=== PATIENT | female | born 1945 | race Native Hawaiian/Other Pacific Islander ===

== ENCOUNTER 2020-03-19 18:45 | Emergency (ER) | payer OTHER ==
[~2020-03-19] VITALS: Ht 165.1 cm; Wt 94.8 kg
[2020-03-19 18:45] VITALS: TEMP 98.3
[2020-03-19 19:21] LABS: PLATELET COUNT 176 K/uL (152-353)
[2020-03-19 19:33] LABS: POTASSIUM 4.5 mmol/L (3.6-5.2)
[2020-03-19 20:43] VITALS: BP 150/52
[2020-03-19] MEDS ORDERED: LEVO0.08 PO (23:24)
[2020-03-19] MEDS ORDERED: METF500T PO (23:26)
[2020-03-19] MEDS ORDERED: LIPITOR40 MG PO (23:27)
[2020-03-19] MEDS ORDERED: METO50TA27 PO (23:34)
[2020-03-19] MEDS ORDERED: [UNRECOGNIZED DRUG - OTHER] INH (23:38)
[2020-03-20] MEDS ORDERED: CLOP75TA2 PO (13:32)
[2020-03-20] MEDS ORDERED: ENALAPRIL MALE2.5 MG PO (13:33)
[2020-03-20] MEDS ORDERED: ACTOS15 MG PO (13:34)
[2020-03-20] MEDS ORDERED: NOVOLIN 70/30 F1 INJ SC ×2 (13:41→13:43)
[2020-03-23] MEDS ORDERED: CITA20TA2 PO (08:50)
[2020-03-23] MEDS ORDERED: INSU300I SC (08:50)
[2020-03-23] MEDS ORDERED: DONE5TAB PO (08:50)
[2020-03-23] MEDS ORDERED: CHOL100034 PO (08:50)
[2020-03-23] MEDS ORDERED: CEFDINIR300 MG PO (09:01)
== END 2020-03-19 20:43 | disposition still patient (30) ==
LOC: ED 18:51
PROVIDERS: Hospitalist
DX: F32.89 Other specified depressive episodes (principal); F41.8 Other specified anxiety disorders; Z11.59 Encounter for screening for other viral diseases; Z04.6 Encounter for general psychiatric examination, requested by authority
CPT/HCPCS: 36415; 80053; 85027; 87635; 93005; 99283; 99285; U0003